=== PATIENT | female | born 1960 | race Caucasian/White ===

== ENCOUNTER 2020-08-25 19:09 | Emergency (ER) | payer MEDICAID, SELFPAY ==
[2020-08-25 19:52] VITALS: BP 151/68; PULSE 70; RESP 16; TEMP 36.7; O2SAT 99
[2020-08-25 21:12] VITALS: BP 182/87; PULSE 69; RESP 16; TEMP 36.9; O2SAT 94; BMI 33.4
--- NOTE | 2020-08-25 22:17 | CT_ITS ---
EXAMINATION: CT FACIAL BONES WITHOUT CONTRAST CLINICAL INFORMATION: Right upper premolar dental abscess? COMPARISON: None TECHNIQUE: Axial images obtained through the facial bone. Coronal and sagittal reformatted images are performed at the CT scanner This CT examination was performed using dose optimization techniques as appropriate, variously including the following: *Automated exposure control *Adjustment of mA and/or kV according to patient size (this includes techniques or standardized protocols for targeted exams where dose is matched to indication/reason for exam; i.e. extremities or head) *Use of iterative reconstruction technique DLP: 439 mGy-cm FINDINGS: There is no fracture. The orbital globes and retrobulbar structures are normal. Normal aeration of the paranasal sinuses. There is poor dentition. There is periapical lucency of the maxillary incisors bilaterally.. No evidence of periosteal abscess. CT/CT facial bones wo con IMPRESSION: Periapical lucency of the maxillary incisors bilaterally concerning for abscess.
--- NOTE | 2020-08-25 22:19 | ED.GENADULT ---
HPI - General Adult General Chief complaint: General Medical Stated complaint: face swelling Time Seen by Provider: 08/25/20 22:17 Source: patient Mode of arrival: ambulatory Limitations: no limitations History of Present Illness HPI narrative: Patient with caries in right upper pre molar area for last few days started on antibiotic penicillin for last 3 days today just few hours ago noticed increased swelling of the right cheek no fever no chills no nausea no vomiting Related Data Previous Rx's Medication Instructions Recorded clindamycin HCl 300 mg PO QID #40 cap 08/25/20 oxycodone-acetaminophen [Percocet] 1 tab PO Q6H PRN #20 tab 08/25/20 Allergies Allergy/AdvReac Type Severity Reaction Status Date / Time No Known Allergies Allergy Verified 08/25/20 21:11 Review of Systems Review of Systems: Yes all other systems are reviewed and are negative PMFSH Past Medical History Medical History Asthma Social History Social History Advance Directives: No Advance Directives Information Provided: Yes Physical Exam Vital Signs: Vital Signs: Last Vital Signs Temp 98.5 F 08/25/20 21:12 Pulse 82 08/25/20 23:05 Resp 16 08/25/20 23:05 BP 151/76 H 08/25/20 23:05 Pulse Ox 94 08/25/20 21:12 Body Mass Index 33.4 Const: General: healthy appearing and acute distress moderate HENMT: Head: Yes normal to inspection Ears: hearing grossly normal bilaterally General nose exam: Normal external nose present Face and sinus: Yes erythema (Right maxillary area) Face images: 1. Swelling of the right cheek over the maxillary area Mouth: Normal oral and palatal mucosa present Teeth and gingiva: caries Teeth image: 1. Deep dental caries with slight gum swelling tender Throat: Yes posterior oropharynx normal Resp: Effort & Inspection: normal respiratory effort Auscultation: clear to auscultation bilaterally Cardio: Rate: regular rate Rhythm: regular rhythm Heart sounds: S1 normal heart sound present and S2 normal heart sound present Course Course Course Narrative: Patient CT scan showed periapical dental abscess will give her p.o. clindamycin and oxycodone for pain advised to follow with dentist Discharge Plan Discharge Clinical Impression: Dental abscess Patient Disposition: Home, Self-Care Instructions: Dental Abscess (ED) Additional Instructions: Take antibiotic as prescribed. Stop the other antibiotic for now Follow-up with dentist Prescriptions: New clindamycin HCl 300 mg capsule 300 mg PO QID Qty: 40 RF: 0 oxycodone-acetaminophen [Percocet] 5-325 mg tablet 1 tab PO Q6H PRN (Reason: Pain (Scale Score 4-6)) Qty: 20 RF: 0
--- NOTE | 2020-08-25 22:20 | PC.NURSE ---
Pt found sitting upright in bed, CAOx4, speaking full sentences. Pt holding the right side of her face, reports pain/swelling x 3 days due to dental abscess. Pt has been taking PCN for 3 days with no relief. at bedside for primary eval. Pt aware of plan to CT sinuses. Awaiting CT.
[2020-08-25] MEDS: oxyCODONE HCl Immed Release 5 MG TABLET PO (22:31)
[2020-08-25] MEDS: Fluconazole 150 MG TABLET PO (22:31)
[2020-08-25] MEDS: Ketorolac Tromethamine 60 MG/2 ML VIAL IM (22:31)
--- NOTE | 2020-08-25 22:35 | PC.NURSE ---
Pt medicated per OCT for 10/10 pain to mouth/face. Awaiting CT.
[2020-08-25 23:05] VITALS: BP 151/76; PULSE 82; RESP 16
== END 2020-08-25 23:50 | disposition home or self-care (01) ==
PROVIDERS: Emergency Provider Internal Medicine; PCP Internal Medicine Geriatric Medicine
DX: K05.319 Chronic periodontitis, localized, unspecified severity (principal); Z79.899 Other long term (current) drug therapy
CPT/HCPCS: 70486; 96372; 99284; J1885

== ENCOUNTER 2020-10-16 14:01 | Emergency (ER) | payer MEDICAID, SELFPAY ==
--- NOTE | ~2020-10-16 | CT_ITS ---
EXAMINATION: CT ABDOMEN AND PELVIS WITH CONTRAST CLINICAL INFORMATION: Abdominal pain, diarrhea. Rule out diverticulitis COMPARISON: None TECHNIQUE: Multidetector volumetric images were obtained from the superior aspect of the liver through the pubic symphysis following administration 85 mL of Omnipaque 350 intravenous contrast. Sagittal and coronal reformatted images were obtained on the technologist's workstation. Oral contrast: No This CT examination was performed using dose optimization techniques as appropriate, variously including the following: *Automated exposure control *Adjustment of mA and/or kV according to patient size (this includes techniques or standardized protocols for targeted exams where dose is matched to indication/reason for exam; i.e. extremities or head) *Use of iterative reconstruction technique DLP: 638 mGy-cm FINDINGS: LUNG BASES: In addition to calcified granulomata, there are small noncalcified pulmonary nodules, for example 5 mm in the left lower lobe in image 12, 3 mm in the left lower lobe in image 11, and 3 mm in the left lower lobe in image 9. There is focal bronchiectasis and bronchial wall thickening in the posterior periphery of the left lower lobe in the left posterior costophrenic sulcus. LIVER, GALLBLADDER, AND BILIARY TREE: The liver is normal in size, shape, and attenuation. No focal hepatic lesion or biliary ductal dilatation is present. The gallbladder is unremarkable with no evidence of radiopaque gallstones, gallbladder wall thickening, or obvious pericholecystic inflammatory changes. PANCREAS: Unremarkable. SPLEEN: Unremarkable. ADRENAL GLANDS: Unremarkable. KIDNEYS AND URETERS: The kidneys are normal in size, shape, and attenuation. No hydronephrosis, hydroureter, or calculi seen. No perinephric stranding. BLADDER: Unremarkable. GASTROINTESTINAL TRACT: Stomach is collapsed with wall thickening likely due to underdistention. Small bowel nondilated. There is wall thickening and edema of the right colon to the hepatic flexure. There is a more normal appearance of the splenic flexure and left colon. Small amount of fluid is seen in the right lower quadrant adjacent the cecum, most notable on coronal images. Several small right lower quadrant lymph nodes are present as well. Scattered colonic diverticulosis most notable in the sigmoid colon. No evidence of acute colitis. ABDOMINAL WALL: Small fat-containing umbilical hernia. LYMPH NODES: Normal. VASCULAR: Unremarkable. PELVIC VISCERA: Normal CT appearance of the uterus and ovaries. No adnexal mass. OSSEOUS STRUCTURES: Unremarkable. CT/CT abdomen pelvis w con IMPRESSION: There is mild wall thickening and edema of the right colon, consistent with a nonspecific colitis. Diverticulosis without evidence of diverticulitis. Several tiny pulmonary micronodules are seen in the left lower lobe. According to the UPDATED 2017 Fleischner Society recommendations, the advised follow-up imaging for solid nodules < 6 mm is: LOW RISK PATIENT: No routine follow-up. HIGH RISK PATIENT: Optional CT at 12 months.
[2020-10-16 14:31] VITALS: BP 111/50; PULSE 78; RESP 18; TEMP 36.9; O2SAT 97; BMI 33.3
[2020-10-16 15:41] VITALS: BP 132/58; PULSE 77; RESP 19; TEMP 37.2; O2SAT 97
--- NOTE | 2020-10-16 15:43 | PC.NURSE ---
Pt reports that she has been having black diarrhea with abdominal pain for about 2 weeks. She has been having nausea as well. Her pain is in her lower middle abdomen.
[2020-10-16 16:08] LABS: MANUAL DIFF FLAG NO
[2020-10-16 16:10] LABS: Basophils Percent Auto 0.5 % (0-2); Eosinophils Absolute Auto 0.1 X10*3/uL (0.0-0.4); Eosinophils Percent Auto 1.1 % (0-4); Hematocrit 40.9 % (37-47); Hemoglobin 13.1 g/dl (12.0-16.0); Imm Gran Abs Auto 0.04 X10*3/uL (0.00-0.03); Imm Gran Pct Auto 0.5 % (0.0-0.4); Lymphocytes Absolute Auto 1.2 X10*3/uL (1.2-4.9); Mean Corpuscular Hemoglobin 27.5 pg (27.0-33.0); Mean Corpuscular Volume 85.9 fL (80-98); Mean Platelet Volume 8.9 fL (9.4-12.3); Monocytes Absolute Auto 0.5 X10*3/uL (0.1-1.2); Monocytes Percent Auto 6.8 % (2-11); Neutrophils Absolute Auto 5.4 X10*3/uL (2.0-8.3); Neutrophils Percent Auto 74.1 % (45-73); Platelet Count 282 X10*3/uL (160-400); Red Blood Count 4.76 X10*6/uL (4.20-5.50); Red Cell Distribution Width 12.9 % (11.0-16.0); White Blood Count 7.3 X10*3/uL (4.8-10.8)
--- NOTE | 2020-10-16 16:18 | ED_ITS ---
HPI - Abdominal Pain General Chief Complaint: Abdominal Pain Stated Complaint: blood in stool Time Seen by Provider: 10/16/20 15:43 Source: patient and lang interpreter Mode of arrival: ambulatory Limitations: no limitations and language barrier History of Present Illness HPI narrative: 60-year-old female with a past medical history of chronic back pain, chronic neck pain, anxiety, panic attacks with complaints of generalized abdominal cramping with associated diarrhea x2 weeks. Patient tells me that her stools have been dark in color and frequent with more episodes and she can count 1 day. Nausea with no vomiting. No fevers or chills. She describes her pain as generalized abdominal cramping which is relieved by moving her bowels. She does take naproxen occasionally. Does not take any iron supplements. Took clindamycin x 10 days one month ago for dental abscess. MD elicited complaint: abdominal pain Related Data Previous Rx's Medication Instructions Recorded clindamycin HCl 300 mg PO QID #40 cap 08/25/20 oxycodone-acetaminophen [Percocet] 1 tab PO Q6H PRN #20 tab 08/25/20 vancomycin 125 mg PO QID 10 Days #40 cap 10/16/20 Allergies Allergy/AdvReac Type Severity Reaction Status Date / Time No Known Allergies Allergy Verified 10/16/20 14:31 Review of Systems Review of Systems Yes all other systems are reviewed and are negative Constitutional: Reports no additional constitutional complaints, Denies body ache(s), Denies chills, Denies fever(s), Denies headache(s) and Denies weakness Eyes: Reports no additional eye complaints and Denies change in vision Reports system reviewed and no additional complaints, except as documented, Denies dizziness, Denies headache(s), Denies nasal congestion, Denies nasal discharge and Denies neck pain Cardiovascular: Reports no additional cardiovascular complaints, Denies chest pain, Denies leg edema and Denies dyspnea Respiratory: Reports no additional respiratory complaints, Denies cough and Denies dyspnea Gastrointestinal: Reports no additional gastrointestinal complaints, Reports abdominal pain, Reports melena, Reports diarrhea, Reports nausea and Denies vomiting Genitourinary: Reports no additional female genitourinary complaints and Denies urinary incontinence Musculoskeletal: Reports no additional musculoskeletal complaints, Denies back pain, Denies arthralgias, Denies joint swelling, Denies neck pain, Denies numbness and Denies tingling Skin/Breast: Reports system reviewed and no additional complaints, except as docu and Denies rash Reports system reviewed and no additional complaints, except as documented, Denies Abnormal speech present, Denies dizziness, Denies headache(s), Denies numbness, Denies tingling and Denies weakness Physical Exam Vital Signs: Vital Signs: Last Vital Signs Temp 99.0 F 10/16/20 15:41 Pulse 77 10/16/20 15:41 Resp 19 10/16/20 15:41 BP 132/58 L 10/16/20 15:41 Pulse Ox 97 10/16/20 15:41 Body Mass Index 33.3 Const: Other: Very anxious, tearful, crying General: cooperative, healthy appearing, comfortable and no acute distress Orientation/consciousness: patient oriented x3 Limitations: no limitations HENMT: Head: Yes normal to inspection Ears: hearing grossly normal bilaterally General nose exam: Normal external nose present Face and sinus: Yes normal facial exam Mouth: Normal oral and palatal mucosa present Throat: Yes posterior oropharynx normal Eyes: General: appearance normal, both eyes and all related structures Pupils: Equal, round and reactive pupils present Neck: Neck: Yes normal visual inspection Chest: Chest palpation & inspection: normal inspection of the chest Resp: Effort & Inspection: normal respiratory effort Auscultation: clear to auscultation bilaterally Cardio: Rate: regular rate Rhythm: regular rhythm Peripheral pulses: Peripheral pulses 2+ throughout GI: Inspection: Yes normal to inspection Palpation (GI): Soft to palpation, Tenderness to palpation present (GI) (Generalized diffuse tenderness with no focal tenderness) with no rebound tenderness and no guarding Auscultation: normal bowel sounds Rectal Exam - Female: visual inspection normal and normal sphincter tone Back/Spine/Pelvis: Thoracic/Lumbar Spine: thoracic and lumbar spine normal to inspection Skin: General skin exam: no rashes or lesions noted Neuro: General: patient oriented x3, no focal motor deficits and normal sensation to monofilament Cranial nerves: Yes Equal, round and reactive pupils present Cognition (Neuro): normal cognition Speech: No Abnormal speech present Gait exam (Neuro): Normal gait present Motor exam (neuro): 5/5 motor strength present throughout Extrem: General: Yes normal to inspection Course Course Course Narrative: 60 yo female here with diffuse abdominal cramping with associated nausea and diarrhea x 2 weeks. Patient describes her stool as dark in color. On exam she has mild diffuse tenderness with no focal tenderness. Her rectal exam was limited as the patient was very anxious and no stool was able to be obtained. Will check labs including acid, occult stool, UA, stool studies (D/t recent antibiotics), CT A/P. Will give PPI, antiemetics, analgesia and re-assess. 1620-Visualized stool sample which was yellow liquid stool which was blood streaked NOT black. 1720-Labs unremarkable. UA pending. C diff antigen positive but toxin negative. PCR pending. CT c/w nonspecific colitis. D/w with ID to treat for cdiff or wait for PCR to be resulted. 1800-D/w with ID. In this case where the antigen is positive and the toxin is negative should follow the PCR which will be resulted tomorrow. If patient is symptomatic with severe diarrhea, abdominal cramping and recent antibiotic use may start treatment with oral vancomycin today. Discussed findings with the patient. Reviewed worrisome signs/symptoms with the patient and when to return to the ED. Comfortable with discharge home. MDM - Abdominal Pain MDM Narrative Medical decision making narrative: infectious diarrhea, diverticulitis, PUD, GI bleed, IBS Medical Records Attestation: I reviewed the patient's medical records. Lab Data Attestation: I reviewed the patient's lab results. Result diagrams: 10/16/20 15:59 10/16/20 15:59 Labs: Lab Results 10/16/20 10/16/20 10/16/20 Range/Units 15:59 15:59 15:59 WBC 7.3 (4.8-10.8) X10*3/uL RBC 4.76 (4.20-5.50) X10*6/uL Hgb 13.1 (12.0-16.0) g/dl Hct 40.9 (37-47) % MCV 85.9 (80-98) fL MCH 27.5 (27.0-33.0) pg MCHC 32.0 (31.0-35.0) g/dl RDW 12.9 (11.0-16.0) % Plt Count 282 (160-400) X10*3/uL MPV 8.9 L (9.4-12.3) fL Immature Gran % (Auto) 0.5 H (0.0-0.4) % Neut % (Auto) 74.1 H (45-73) % Lymph % (Auto) 17.0 L (20-40) % [place] % (Auto) 6.8 (2-11) % Eos % (Auto) 1.1 (0-4) % Baso % (Auto) 0.5 (0-2) % Lymph # (Auto) 1.2 (1.2-4.9) X10*3/uL [place] # (Auto) 0.5 (0.1-1.2) X10*3/uL Eos # (Auto) 0.1 (0.0-0.4) X10*3/uL Baso # (Auto) 0.0 (0.0-0.2) X10*3/uL Abs Immat Gran (auto) 0.04 H (0.00-0.03) X10*3/uL Absolute Neuts (auto) 5.4 (2.0-8.3) X10*3/uL Absolute Nucleated RBC 0.000 (0.0-0.012) X10*3/uL Nucleated RBC % (auto) 0.0 (0.0-0.2) /100WBC PT 13.0 (10.8-13.0) SEC INR 1.1 (0.9-1.1) Sodium 141 (135-145) mmol/L Potassium 3.4 (3.3-5.1) mmol/L Chloride 103 (96-108) mmol/L Carbon Dioxide 28 (22-29) mmol/L Anion Gap 13 (12-20) BUN 14 (9-16) mg/dL Creatinine 0.84 (0.5-1.4) mg/dL Estim Creat Clear Calc 64.3 Estimated GFR > 60 Random Glucose 108 (60-115) mg/dL Lactic Acid (0.5-2.0) mmol/L Calcium 8.5 (8.4-10.2) mg/dL Total Bilirubin 0.5 (0.0-1.0) mg/dL Direct Bilirubin < 0.2 (0.0-0.5) mg/dL AST 14 (5-31) U/L ALT 12 (0-31) U/L Alkaline Phosphatase 87 (39-117) U/L Total Protein 6.7 (6.5-8.0) g/dL Albumin 3.9 (3.5-5.0) g/dL Stool Occult Blood (NEG) Stool Leukocytes, Qual (NEGATIVE) C. difficile Toxin A&B (Negative) C. difficile Antigen (Negative) C. difficile Interpret 10/16/20 10/16/20 10/16/20 Range/Units 15:59 16:19 16:19 WBC (4.8-10.8) X10*3/uL RBC (4.20-5.50) X10*6/uL Hgb (12.0-16.0) g/dl Hct (37-47) % MCV (80-98) fL MCH (27.0-33.0) pg MCHC (31.0-35.0) g/dl RDW (11.0-16.0) % Plt Count (160-400) X10*3/uL MPV (9.4-12.3) fL Immature Gran % (Auto) (0.0-0.4) % Neut % (Auto) (45-73) % Lymph % (Auto) (20-40) % [place] % (Auto) (2-11) % Eos % (Auto) (0-4) % Baso % (Auto) (0-2) % Lymph # (Auto) (1.2-4.9) X10*3/uL [place] # (Auto) (0.1-1.2) X10*3/uL Eos # (Auto) (0.0-0.4) X10*3/uL Baso # (Auto) (0.0-0.2) X10*3/uL Abs Immat Gran (auto) (0.00-0.03) X10*3/uL Absolute Neuts (auto) (2.0-8.3) X10*3/uL Absolute Nucleated RBC (0.0-0.012) X10*3/uL Nucleated RBC % (auto) (0.0-0.2) /100WBC PT (10.8-13.0) SEC INR (0.9-1.1) Sodium (135-145) mmol/L Potassium (3.3-5.1) mmol/L Chloride (96-108) mmol/L Carbon Dioxide (22-29) mmol/L Anion Gap (12-20) BUN (9-16) mg/dL Creatinine (0.5-1.4) mg/dL Estim Creat Clear Calc Estimated GFR Random Glucose (60-115) mg/dL Lactic Acid 0.9 (0.5-2.0) mmol/L Calcium (8.4-10.2) mg/dL Total Bilirubin (0.0-1.0) mg/dL Direct Bilirubin (0.0-0.5) mg/dL AST (5-31) U/L ALT (0-31) U/L Alkaline Phosphatase (39-117) U/L Total Protein (6.5-8.0) g/dL Albumin (3.5-5.0) g/dL Stool Occult Blood POS (NEG) Stool Leukocytes, Qual MANY: >10/OIF (NEGATIVE) C. difficile Toxin A&B (Negative) C. difficile Antigen (Negative) C. difficile Interpret 10/16/20 Range/Units 16:19 WBC (4.8-10.8) X10*3/uL RBC (4.20-5.50) X10*6/uL Hgb (12.0-16.0) g/dl Hct (37-47) % MCV (80-98) fL MCH (27.0-33.0) pg MCHC (31.0-35.0) g/dl RDW (11.0-16.0) % Plt Count (160-400) X10*3/uL MPV (9.4-12.3) fL Immature Gran % (Auto) (0.0-0.4) % Neut % (Auto) (45-73) % Lymph % (Auto) (20-40) % [place] % (Auto) (2-11) % Eos % (Auto) (0-4) % Baso % (Auto) (0-2) % Lymph # (Auto) (1.2-4.9) X10*3/uL [place] # (Auto) (0.1-1.2) X10*3/uL Eos # (Auto) (0.0-0.4) X10*3/uL Baso # (Auto) (0.0-0.2) X10*3/uL Abs Immat Gran (auto) (0.00-0.03) X10*3/uL Absolute Neuts (auto) (2.0-8.3) X10*3/uL Absolute Nucleated RBC (0.0-0.012) X10*3/uL Nucleated RBC % (auto) (0.0-0.2) /100WBC PT (10.8-13.0) SEC INR (0.9-1.1) Sodium (135-145) mmol/L Potassium (3.3-5.1) mmol/L Chloride (96-108) mmol/L Carbon Dioxide (22-29) mmol/L Anion Gap (12-20) BUN (9-16) mg/dL Creatinine (0.5-1.4) mg/dL Estim Creat Clear Calc Estimated GFR Random Glucose (60-115) mg/dL Lactic Acid (0.5-2.0) mmol/L Calcium (8.4-10.2) mg/dL Total Bilirubin (0.0-1.0) mg/dL Direct Bilirubin (0.0-0.5) mg/dL AST (5-31) U/L ALT (0-31) U/L Alkaline Phosphatase (39-117) U/L Total Protein (6.5-8.0) g/dL Albumin (3.5-5.0) g/dL Stool Occult Blood (NEG) Stool Leukocytes, Qual (NEGATIVE) C. difficile Toxin A&B Negative (Negative) C. difficile Antigen Positive A (Negative) C. difficile Interpret PCR to be performed Imaging Data CT scan - abdomen: Attestation: I personally reviewed and interpreted this imaging study as follows: Radiologist's impression: EXAMINATION: CT ABDOMEN AND PELVIS WITH CONTRAST CLINICAL INFORMATION: Abdominal pain, diarrhea. Rule out diverticulitis COMPARISON: None TECHNIQUE: Multidetector volumetric images were obtained from the superior aspect of the liver through the pubic symphysis following administration 85 mL of Omnipaque 350 intravenous contrast. Sagittal and coronal reformatted images were obtained on the technologist's workstation. Oral contrast: No This CT examination was performed using dose optimization techniques as appropriate, variously including the following: *Automated exposure control *Adjustment of mA and/or kV according to patient size (this includes techniques or standardized protocols for targeted exams where dose is matched to indication/reason for exam; i.e. extremities or head) *Use of iterative reconstruction technique DLP: 638 mGy-cm FINDINGS: LUNG BASES: In addition to calcified granulomata, there are small noncalcified pulmonary nodules, for example 5 mm in the left lower lobe in image 12, 3 mm in the left lower lobe in image 11, and 3 mm in the left lower lobe in image 9. There is focal bronchiectasis and bronchial wall thickening in the posterior periphery of the left lower lobe in the left posterior costophrenic sulcus. LIVER, GALLBLADDER, AND BILIARY TREE: The liver is normal in size, shape, and attenuation. No focal hepatic lesion or biliary ductal dilatation is present. The gallbladder is unremarkable with no evidence of radiopaque gallstones, gallbladder wall thickening, or obvious pericholecystic inflammatory changes. PANCREAS: Unremarkable. SPLEEN: Unremarkable. ADRENAL GLANDS: Unremarkable. KIDNEYS AND URETERS: The kidneys are normal in size, shape, and attenuation. No hydronephrosis, hydroureter, or calculi seen. No perinephric stranding. BLADDER: Unremarkable. GASTROINTESTINAL TRACT: Stomach is collapsed with wall thickening likely due to underdistention. Small bowel nondilated. There is wall thickening and edema of the right colon to the hepatic flexure. There is a more normal appearance of the splenic flexure and left colon. Small amount of fluid is seen in the right lower quadrant adjacent the cecum, most notable on coronal images. Several small right lower quadrant lymph nodes are present as well. Scattered colonic diverticulosis most notable in the sigmoid colon. No evidence of acute colitis. ABDOMINAL WALL: Small fat-containing umbilical hernia. LYMPH NODES: Normal. VASCULAR: Unremarkable. PELVIC VISCERA: Normal CT appearance of the uterus and ovaries. No adnexal mass. OSSEOUS STRUCTURES: Unremarkable. CT/CT abdomen pelvis w con IMPRESSION: There is mild wall thickening and edema of the right colon, consistent with a nonspecific colitis. Diverticulosis without evidence of diverticulitis. Discharge Plan Discharge Clinical Impression: C. difficile colitis Patient Disposition: Home, Self-Care Instructions: C. Diff (Clostridioides Difficile) Infection (ED) Additional Instructions: Increase fluids, rest Avoid antidiarrhea medications as this could make you very sick Your first stool sample is concerning for cdiff. Your second test will be back tomorrow and we will call you if the treatment plan changes Wash your hands after using the bathroom. Clean all toilets and bathrooms with a bleach solution Prescriptions: New vancomycin 125 mg capsule 125 mg PO QID 10 Days Qty: 40 RF: 0 No Action clindamycin HCl 300 mg capsule 300 mg PO QID Qty: 40 RF: 0 oxycodone-acetaminophen [Percocet] 5-325 mg tablet 1 tab PO Q6H PRN (Reason: Pain (Scale Score 4-6)) Qty: 20 RF: 0 Referrals: Name,MD Yeison [Primary Care Provider] - 2 days Print Language: [place] [facility] Past Medical History Attestation statement: The following information was validated with the patient. Source: old records reviewed and nursing notes reviewed Medical History Asthma Back pain Social History Social History Alcohol intake: never Smoking Status: Never smoker Use of substances other than those prescribed or required for medical reasons: No Advance Directives: No Advance Directives Information Provided: No
[2020-10-16 16:21] LABS: INTERNATIONAL NORM RATIO 1.1 (0.9-1.1)
[2020-10-16 16:27] LABS: OBS Int Ctl Valid YES; OBS1 POS (NEG)
[2020-10-16 16:27] LABS: Lactic Acid 0.9 mmol/L (0.5-2.0)
[2020-10-16 16:33] LABS: Alanine Aminotransferase 12 U/L (0-31); Albumin Level 3.9 g/dL (3.5-5.0); Alkaline Phosphatase 87 U/L (39-117); Anion Gap 13 (12-20); Aspartate Amino Transferase 14 U/L (5-31); Bilirubin Direct < 0.2 mg/dL (0.0-0.5); Bilirubin Total 0.5 mg/dL (0.0-1.0); Blood Urea Nitrogen 14 mg/dL (9-16); Calcium 8.5 mg/dL (8.4-10.2); Carbon Dioxide 28 mmol/L (22-29); Chloride 103 mmol/L (96-108); Creatinine Clr Calc Pharmacy 64.3; Estimated Glomerular Filt Rate > 60; Glucose Random 108 mg/dL (60-115); Potassium 3.4 mmol/L (3.3-5.1); Sodium 141 mmol/L (135-145); Total Protein 6.7 g/dL (6.5-8.0)
--- NOTE | 2020-10-16 16:36 | PC.NURSE ---
Stool sample sent for occult and culturing.
[2020-10-16] MEDS: 0.9 % Sodium Chloride 1,000 ML 999 ML IV (16:52)
[2020-10-16] MEDS: Famotidine/PF 20 MG/2 ML VIAL IVPUSH (16:53)
[2020-10-16] MEDS: LORazepam 2 MG/ML VIAL 1 MG IVPUSH (16:53)
[2020-10-16] MEDS: Morphine Sulfate 2 MG/ML CARTRIDGE IVPUSH (16:54)
[2020-10-16 17:17] LABS: CDIFF Ag Positive (Negative); CDiff Toxin Negative (Negative)
[2020-10-16 17:18] LABS: CDIFF Internal ctrl Dots and bkg OK (V)
[2020-10-16] MEDS: iohexoL 350 MG/ML 100 ML INFUS..BTL IV (17:20)
[2020-10-16 17:32] LABS: Leukocytes Stool Qualitative MANY: >10/OIF (NEGATIVE)
[2020-10-17 09:43] LABS: CDiff Gene PCR POSITIVE (Negative)
== END 2020-10-16 18:14 | disposition home or self-care (01) ==
PROVIDERS: Nurse Practitioner Family; Emergency Provider Emergency Medicine Emergency Medical Services; PCP Internal Medicine Geriatric Medicine
DX: A04.72 Enterocolitis due to Clostridium difficile, not specified as recurrent (principal); R10.84 Generalized abdominal pain; R11.0 Nausea; F41.9 Anxiety disorder, unspecified
CPT/HCPCS: 36415; 74177; 80048; 80076; 82272; 83605; 85025; 85610; 87045; 87046; 87177; 87209; 87324; 87449; 87493; 89055; 96361; 96374; 96375; 99284; J2060; J2270; Q9967

== ENCOUNTER 2021-01-11 16:21 | Outpatient (REF) | payer MEDICAID, SELFPAY ==
--- NOTE | 2021-01-11 | PFT_ITS ---
INDICATION: Asthma. SPIROMETRY: The FEV1 to FVC of 90% with an FEV1 of 2.13 L, which is 105% predicted, and an FVC of 2.37 L, which is 91% predicted. No significant response to bronchodilators noted. Maximum voluntary ventilation 96% predicted. LUNG VOLUMES: Total lung capacity 87% predicted with an expiratory reserve volume of 22% predicted. DIFFUSION CAPACITY: DLCO 121% predicted. COMPARISONS: None. INTERPRETATION: No obstructive ventilatory defect. No significant response to bronchodilators noted. Normal maximum voluntary ventilation. Normal lung volumes, although she has a decrease in the expiratory reserve volume likely from an elevated BMI. Her diffusion capacity is high normal, therefore need to consider exogenous exposure to carbon monoxide from smoking or secondhand smoke. If asthma is in the differential, methacholine challenge may be very helpful in assessing for hyper-reactive airways in a diagnosis of asthma. Clinical correlation warranted. Geremias Rich MD MR/MODL / [id number]
== END 2021-01-11 16:22 | disposition home or self-care (01) ==
LOC: HO.RESP 16:21
PROVIDERS: PCP Internal Medicine Geriatric Medicine; Visit Provider Internal Medicine Geriatric Medicine
DX: J45.909 Unspecified asthma, uncomplicated (principal)
CPT/HCPCS: 94060; 94727; 94729

== ENCOUNTER 2022-07-11 13:47 | Outpatient (REF) | payer MEDICAID, SELFPAY ==
--- NOTE | ~2022-07-11 | MM_ITS ---
EXAMINATION: MM SCREENING DIGITAL BREAST TOMOSYNTHESIS, BILATERAL CLINICAL INFORMATION: Screening. Asymptomatic. The lifetime risk of breast cancer based on the Tyrer-Cuzick Model is 4%. COMPARISON: Mammography: 05/06/2019, 08/10/2017 TECHNIQUE: Digital breast tomosynthesis is performed in both the craniocaudal and mediolateral oblique views along with computer-aided detection (CAD). Synthesized 2D images are generated from the tomosynthesis. FINDINGS: There are scattered areas of fibroglandular density (ACR BI-RADS breast composition Category b). There are no significant masses, abnormal calcifications, or other abnormalities. Parenchymal pattern is similar to prior exams. No developing density. No significant changes. The axilla and skin contours are unremarkable. MM/MM tomosynthesis screening BI IMPRESSION: No mammographic evidence of malignancy. ASSESSMENT: BI-RADS 1: Negative RECOMMENDATION: Routine annual mammography screening. This patient's information was entered into a reminder system with a target due date for their next mammogram.
== END 2022-07-11 13:48 | disposition home or self-care (01) ==
LOC: HO.MAMMO 13:47
PROVIDERS: PCP Internal Medicine Geriatric Medicine; Visit Provider Internal Medicine Geriatric Medicine
DX: Z12.31 Encounter for screening mammogram for malignant neoplasm of breast (principal)
CPT/HCPCS: 77063; 77067

== ENCOUNTER 2023-09-14 13:42 | Outpatient (REF) | payer MEDICAID, SELFPAY ==
[2023-09-14 16:19] LABS: MANUAL DIFF FLAG NO
[2023-09-14 16:24] LABS: Basophils Absolute Auto 0.1 X10*3/uL (0.0-0.2); Basophils Percent Auto 1.1 % (0-2); Eosinophils Absolute Auto 0.4 X10*3/uL (0.0-0.4); Eosinophils Percent Auto 5.1 % (0-4); Hematocrit 43.1 % (37.0-47.0); Hemoglobin 13.8 g/dl (12.0-16.0); Imm Gran Abs Auto 0.02 X10*3/uL (0.00-0.03); Imm Gran Pct Auto 0.3 % (0.0-0.4); Lymphocytes Absolute Auto 2.7 X10*3/uL (1.2-4.9); Lymphocytes Percent Auto 37.1 % (20-40); Mean Corpuscular Volume 87.4 fL (80.0-98.0); Monocytes Absolute Auto 0.3 X10*3/uL (0.1-1.2); Neutrophils Absolute Auto 3.8 x10*3/uL (2.0-8.3); Neutrophils Percent Auto 52.4 % (45-73); Platelet Count 298 X10*3/uL (160-400); Red Blood Count 4.93 X10*6/uL (4.20-5.50); Red Cell Distribution Width 13.3 % (11.0-16.0); White Blood Count 7.2 X10*3/uL (4.8-10.8)
[2023-09-14 16:44] LABS: Alanine Aminotransferase 18 U/L (0-31); Albumin Level 3.9 g/dL (3.5-5.0); Alkaline Phosphatase 113 U/L (39-117); Anion Gap 13 (12-20); Aspartate Amino Transferase 17 U/L (5-31); Bilirubin Total 0.5 mg/dL (0.0-1.0); Blood Urea Nitrogen 14 mg/dL (9-16); Calcium 9.9 mg/dL (8.4-10.2); Carbon Dioxide 29 mmol/L (22-29); Chloride 102 mmol/L (96-108); Cholesterol 262 mg/dL (<200); Estimated Glomerular Filt Rate > 60; Glucose Random 91 mg/dL (60-115); HDL Cholesterol 35 mg/dL (>40); Potassium 3.7 mmol/L (3.3-5.1); Sodium 140 mmol/L (135-145); Total Protein 7.2 g/dL (6.5-8.0); Triglycerides 442 mg/dL (<150)
[2023-09-14 17:03] LABS: TSH reflex Free T4 5.75 uIU/mL (0.32-4.0)
[2023-09-14 17:35] LABS: Free T4 (Free Thyroxine) 0.83 ng/dL (0.71-1.85)
== END 2023-09-14 13:43 | disposition home or self-care (01) ==
LOC: HO.HHCL 13:42
PROVIDERS: Visit Provider Internal Medicine Geriatric Medicine
DX: E03.8 Other specified hypothyroidism (principal); Z12.11 Encounter for screening for malignant neoplasm of colon; Z79.899 Other long term (current) drug therapy
CPT/HCPCS: 36415; 80053; 80061; 84439; 84443; 85025

== ENCOUNTER 2023-10-22 11:38 | Outpatient (REF) | payer MEDICAID, SELFPAY | END 2023-10-22 11:39 | disposition home or self-care (01) | LOC: HO.HOSX 11:38 | PROVIDERS: Visit Provider Physician Assistant | DX: Z13.89 Encounter for screening for other disorder (principal) ==

== ENCOUNTER 2023-10-25 13:55 | Outpatient (AMB) | payer MEDICAID, SELFPAY ==
--- NOTE | 2023-10-25 14:27 | A.OFFVIS_ITS ---
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 Patient reports her finger off and on locking when she makes a fist or when she is using for about 2 weeks. No previous treatment. 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 The patient reports to have intermittent locking in the right little finger when she makes a fist or when she is using it. She states this has been going on for the past two weeks. She has had no other treatments. [facility] Medical History Asthma Back pain Social History (Updated 10/25/23 @ 14:33 by Fadia Rich) Alcohol intake: never Patient Tobacco Use Status: Never used Tobacco Current occupational status: disabled Current occupation: right hand dominant Review of Systems Const All systems reviewed & are unremarkable except as noted in HPI and below Physical Exam Vital Signs: BMI result Body Mass Index 35.9 Const General: cooperative and no acute distress Orientation/consciousness: patient oriented x3 Resp Effort & Inspection: normal respiratory effort and able to speak in complete sentences Cardio Peripheral pulses: Peripheral pulses 2+ throughout Skin General skin exam: no rashes or lesions noted Neuro General: patient oriented x3 Extrem Other: Right little finger: Mild edema located over the PIP joint. No surrounding erythema or drainage. No signs of infection. Able to perform full flexion and extension at the CMC, PIP, and DIP joints with no pain or with axial loading. No active locking with ROM. No tenderness to palpation over the A1 yessica. Sensation intact. Capillary refill is brisk. The remainder of the hand exam, including the remaining digits, is within normal range. 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 Peña is a 63-year-old female, who is Bangladeshi speaking, presents in the office today, as a new patient, for an evaluation of right little finger trigger finger. The patient reports to have intermittent locking in the right little finger when she makes a fist or when she is using it. She states this has been going on for the past two weeks. She has had no other treatments. I recommend the use of anti-inflammatory or gentle ROM. If she should develop any of the following including but not limited too erythema, increased edema, drainage, warmth, or pain she should present to the emergency department for evaluation. Follow up will be PRN, or sooner if needed. X-rays of the right hand which were obtained while in the office today and were reviewed by me, Carol Toribio PA-C, revealed no acute fracture of dislocation. Orders: Orders XR hand RT min 3V Today M79.643 - Pain in unspecified hand Patient Instructions: Scribed by Sandra Peralta, medical service technician, for Carol Toribio PA-C on 10/25/2023 at 2:01 pm, EST. 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
[2023-10-25 14:29] VITALS: BMI 35.9
== END 2023-10-25 14:57 | disposition home or self-care (01) ==
PROVIDERS: PCP Internal Medicine Geriatric Medicine; Visit Provider Physician Assistant
DX: M15.2 Bouchard's nodes (with arthropathy) (principal)
CPT/HCPCS: 99203

== ENCOUNTER 2023-10-25 14:37 | Outpatient (REF) | payer MEDICAID, SELFPAY ==
--- NOTE | ~2023-10-25 | XR_ITS ---
EXAMINATION: XR HAND, RIGHT CLINICAL INFORMATION: Pain in unspecified hand COMPARISON: None available. TECHNIQUE: PA, lateral, and oblique views of the right hand with arrow pointing to the little finger FINDINGS: The bones are intact. No fracture. Alignment is anatomic. Small marginal osteophytes are seen along the ulnar aspect of the PIP joint of the little finger with mild joint space narrowing. Mild associated soft tissue fullness at this area. No erosions or soft tissue calcifications. XR/XR hand RT min 3V IMPRESSION: Mild degenerative change of the PIP joint of the little finger.
== END 2023-10-25 14:38 | disposition home or self-care (01) ==
LOC: HO.HOSX 14:37
PROVIDERS: Visit Provider Physician Assistant
DX: M15.2 Bouchard's nodes (with arthropathy) (principal); M65.351 Trigger finger, right little finger
CPT/HCPCS: 73130; 99212

== ENCOUNTER 2024-09-16 11:26 | Outpatient (REF) | payer MEDICAID, SELFPAY ==
--- OUTSIDE RECORDS SUMMARY | 2024-09-16 12:41 | XMS_ITS | Encounter Summary ---
Author Organization [employer] Address [address] [facility] [address] [place] [address] Care Team Providers Care Distribution Driver Name Role Phone Name, Yeison RUSSELL Primary Care Provider [phone] Lupe Pillai PharmD Unavailable [phone] Reason for Visit * Reason Comments Med Refill Encounter Details Date Type Department Care Team ([facility] st Contact Info) Description 09/03/2024 Refill [facility] [address] [place], [place] [phone] Name, MD Yeison [address] [place], [place] [phone] Moderate persistent asthma without complication Social History Tobacco Use Types Packs/Day Years Used Date Smoking Tobacco: Never Smokeless Tobacco: Never Alcohol Use Standard Drinks/Week Comments Never 0 (1 standard drink = 0.6 oz pur e alcohol) Depression Answer Date Recorded Patient Health Questionnaire-9 Score 0 07/28/2024 Patient Health Questionnaire-9 Score 0 07/28/2024 Last PHQ-9: Questionnaire Data Not on file 1 09/28/2023 Housing Stability Answer Date Recorded What is your housing situation today? I have mahi [place]in 07/28/[address] you li ve. Do you have problems with any of the following? None of the above 07/28/2024 Food Insecurity Answer Date Recorded Within the past 12 months, y ou worried that your food would run out before you got money to buy more: Never True 07/28/2024 Within the past 12 months,th e food you bought just didn't last and you didn't have enough money to get more: Never True 04/2024 Transportation Answer Date Recorded In the past 12 months, has l ack of transportation kept you from medical appts, meetings, work or from getting things needed for daily living? No 07/28/2024 Utilities Answer Date Recorded In the past 12 months, has t he electric, gas, oil or water company threatened to shut off services in your home? No 07/28/2024 Depression Answer Date Recorded Patient Health Questionnaire-2 Score 0 07/28/2024 Internet Access Answer Date Recorded Internet Access Q1 Yes 07/28/2024 Internet Access Q2 Not on file 07/28/2024 Comments Unknown Sex and Gender Information Value Date Recorded Sex Assigned at Female 06/19/2022 10:16 AM EDT Legal Sex Female 10:16 AM EDT Gender Identity Female 06/19/2022 10:16 AM EDT Sexual Orientation Straight 06/19/2022 10 :16 AM EDT documented as of this encounter Plan of Treatment Upcoming Encounters Date Type Department Care Team (Late st Contact Info) Description 09/23/2024 3:30 PM EST Medication Management [facility] [address] [place] [phone] Lupe Pillai, PharmD [address] [place] [phone] 11/10/2024 3:30 PM EDT Office Visit [facility] [address] [place] [address] [phone] Yeison Kraus MD [address] [place] [phone] documented as of this encounter Goals Goal Patient Goal Type Associated Problems Recent Progress Patient-Stated? Author Record your blood pressure once per day Blood Pressure No Puia, Lupe, PharmD Blood Pressure < 140/90 Blood Pressure 154/81( 025 5:23 PM EST) No Puia Lupe, PharmD documented as of this encounter Visit Diagnoses Diagnosis Moderate persistent asthma without complication documented in this encounter Additional Health Concerns Assessment Noted Time PHQ-9 Depression Total Score: 0 07/28/20 24 4:24 PM EST documented as of this encounter Care Teams Distribution Driver Relationship Specialty Start Date End Date Yeison Kraus MD [address] [place] [address] PCP - General Family Medicine 04/05/17 Lupe Pillai, [place] [address] [place] [address] Pharmacist Internal Medicine 10/19/22 documented as of this encounter
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
--- OUTSIDE RECORDS SUMMARY | 2024-09-16 12:41 | XMS_ITS | Encounter Summary ---
Author Organization [employer] Address [address] [facility] [address]t [place] [address] Care Team Providers Care Plasterer Spot Name Role Phone Name, Yeison RUSSELL Primary Care Provider [phone] Lupe Pillai PharmD Unavailable Reason for Visit * Reason Comments Med Refill Encounter Details Date Type Department Care Team (Late Contact Info) Description 09/15/2022 Refill [facility] [address] [place] [phone] Yeison Kraus MD [address] [place] [phone] Social History Tobacco Use Types Packs/Day Years Used Date Smoking Tobacco: Never Assessed Comments Unknown Sex and Gender Information Value Date Recorded Sex Assigned at Female 06/19/2022 10:16 AM EDT Legal Sex Female 10:16 AM EDT Gender Identity Female 06/19/2022 10:16 AM EDT Sexual Orientation Straight 06/19/2022 10 :16 AM EDT documented as of this encounter Plan of Treatment Upcoming Encounters Date Type Department Care Team (Late Contact Info) Description 09/23/2024 3:30 PM EST Medication Management [facility] [address] [place] [phone] Lupe Pillai, PharmD [address] [place] [address] 11/10/2024 3:30 PM EDT Office Visit [facility] [address] [place] [address] Yeison Kraus MD [address] [place] [phone] documented as of this encounter Visit Diagnoses Not on filedocumented in this encounter Care Teams Plasterer Spot Relationship Specialty Start Date End Date Name, MD Yeison [address] [place] [address] PCP - General Family Medicine 04/05/17 Lupe Pillai PharmD [address] [place] [address] Pharmacist Internal Medicine 10/19/22 documented as of this encounter
--- OUTSIDE RECORDS SUMMARY | 2024-09-16 12:41 | XMS_ITS | Encounter Summary ---
Author Organization [employer] Address [address] [facility] [address] [place] [address] Care Team Providers Care Mds Nurse Name Role Phone Name, Yeison RUSSELL Primary Care Provider [phone] Lupe Pillai PharmD Unavailable [phone] Reason for Visit * Reason Onset Date Comments sep recalls 08/28/2024 Encounter Details Date Type Department Care Team (Late st Contact Info) Description 08/28/2024 Telephone [facility] [address] [place], [place] [phone] Rosalinda Cardona MA sep recalls Social History Tobacco Use Types Packs/Day Years [...] AM EDT documented as of this encounter Miscellaneous Notes * Telephone Encounter - Rosalinda Cardona MA - 08/28/2024 11:52 AM EST T/C placed to pt. Scheduled recall. Pt agrees with plan. Reminder letter sent . documented in this encounter Plan of Treatment Upcoming Encounters Date Type Department Care Team (Late st Contact Info) Description 09/23/2024 3:30 PM EST Medication Management [address] [address] Puia Lupe, PharmD [address] [place] [address] 11/10/2024 3:30 PM EDT Office Visit [facility] [address] [place] [phone] Name, MD Yeison [address] [place] [address] documented as of this encounter Goals Goal Patient Goal Type Associated Problems Recent Progress Patient-Stated? Author Record your blood pressure once per day Blood Pressure No Puia, Lupe, PharmD Blood Pressure < 140/90 Blood Pressure 154/81( 025 5:23 PM EST) No Puia, Lupe, PharmD documented as of this encounter Visit Diagnoses Not on filedocumented in this encounter Additional Health Concerns Assessment Noted Time PHQ-9 Depression Total Score: 0 07/28/20 24 4:24 PM EST documented as of this encounter Care Teams Mds Nurse Relationship Specialty Start Date End Date Name, MD Yeison [address] [place] [address] PCP - General Family Medicine 04/05/17 Lupe Pillai PharmD [address] [place] [address] Pharmacist Internal Medicine 10/19/22 documented as of this encounter
--- OUTSIDE RECORDS SUMMARY | 2024-09-16 12:41 | XMS_ITS | Encounter Summary ---
Author Organization [employer] Address [address] [place] [address] Care Team Providers Care Clinical Appeals Rn Name Role Phone Name, Yeison RUSSELL Primary Care Provider [phone] Lupe Pillai PharmD Unavailable [phone] Reason for Visit * Reason Comments Med Refill Encounter Details Date Type Department Care Team ([facility] st Contact Info) Description 03/14/2024 Refill [facility] [address] [place], [place] [phone] Name, MD Yeison [address] [place], [place] [phone] Depression, unspecified depression type Social History Tobacco Use Types Packs/Day Years Used Date Smoking Tobacco: Never Smokeless Tobacco: Never Alcohol Use Standard Drinks/Week Comments Never 0 (1 standard drink = 0.6 oz pur e alcohol) Housing Stability Answer Date Recorded What is your housing situation today? I have mah[place] 06/15/[address] you li ve. Do you have problems with any of the following? None of the above 06/15/2023 Food Insecurity Answer Date Recorded Within the past 12 months, y ou worried that your food would run out before you got money to buy more: Never True 06/15/2023 Within the past 12 months,th e food you bought just didn't last and you didn't have enough money to get more: Never True Transportation Answer Date Recorded In the past 12 months, has l ack of transportation kept you from medical appts, meetings, work or from getting things needed for daily living? No 06/15/2023 Utilities Answer Date Recorded In the past 12 months, has t he [employer], [employer], oil or water [employer] threatened to shut off services in your home? No 06/15/2023 Depression Answer Date Recorded Patient Health Questionnaire-2 Score 0 10/06/2022 Comments Unknown Sex and Gender Information Value [...] Description 09/23/2024 3:30 PM EST Medication Management [facility] [address] [place] [phone] Lupe Pillai PharmD [address] [place] [phone] 11/10/2024 3:30 PM EDT Office Visit [facility] [address] [place] [phone] NameYeison MD [address] [place] [phone] documented as of this encounter Goals Goal Patient Goal Type Associated Problems Recent Progress Patient-Stated? Author Record your blood pressure once per day Blood Pressure No Lupe Pillai PharmD Blood Pressure < 140/90 Blood Pressure 154/81( 025 5:23 PM EST) No Lupe Pillai PharmD documented as of this encounter Visit Diagnoses Diagnosis Depression, unspecified depression type documented in this encounter Care Teams Clinical Appeals Rn Relationship Specialty Start Date End Date Yeison Kraus MD [address] [place] [phone] PCP - General Family Medicine 04/05/17 Lupe Pillai, PharmD [address] [place] [phone] Pharmacist Internal Medicine 10/19/22 documented as of this encounter
--- OUTSIDE RECORDS SUMMARY | 2024-09-16 12:41 | XMS_ITS | Encounter Summary ---
Author Organization [employer] Address [address] [facility] 7t [place] [address] Care Team Providers Care Closing Supervisor Name Role Phone Name, Yeison RUSSELL Primary Care Provider [phone] Lupe Pillai PharmD Unavailable [phone] Encounter Details Date Type Department Care Team (Late st Contact Info) Description 09/26/2022 Orders Only [facility] [address] [place], [place] [phone] Chyna Whitley LPN Social History Tobacco Use Types Packs/Day Years [...] Description 09/23/2024 3:30 PM EST Medication Management [address] [address] Lupe Pillai, PharmD [address] [place] [address] 11/10/2024 3:30 PM EDT Office Visit [address] [phone] NameYeison MD [address] [place] [address] [phone] documented as of this encounter Procedures Procedure Name Priority Date/Time Associated Diagnosis Comments T4, FREE Routine 09/14/2023 1:46 PM EST documented in this encounter Results * T4, Free (09/14/2023 1:46 PM EST) Free T4 (Free Thyroxine) 0.83 0.71 - 1.85 ng/dL [facility] 09/14/2023 1:4 6 PM EST 09/14/2023 3:56 PM EST us Yeison Kraus MD LAB BLOOD ORDERABLES Final Resul t [facility] [address] [place] [phone] [phone] documented in this encounter Visit Diagnoses Not on filedocumented in this encounter Care Teams Closing Supervisor Relationship Specialty Start Date End Date Name, MD Yeison [address] [place] [address] PCP - General Family Medicine 04/05/17 Lupe Pillai PharmD [address] [place] [address] Pharmacist Internal Medicine 10/19/22 documented as of this encounter
--- OUTSIDE RECORDS SUMMARY | 2024-09-16 12:41 | XMS_ITS | Encounter Summary ---
Author Organization [employer] Address [address] 7[address] [place] [address] Care Team Providers Care Whipped Topping Mixer Name Role Phone Name, Yeison RUSSELL Primary Care Provider [phone] Lupe Pillai PharmD Unavailable [phone] Encounter Details Date Type Department Care Team (Latest Contact Info) Description 09/15/2024 Travel Social History Tobacco Use Types Packs/Day Years [...] Description 09/23/2024 3:30 PM EST Medication Management [facility] [address] [place] [address] Lupe Pillai, PharmD [address] [place] [phone] 11/10/2024 3:30 PM EDT Office Visit [facility] [address] [place] [address] NameYeison MD [address] [place] [phone] documented as of this encounter Goals Goal Patient Goal Type Associated Problems Recent Progress Patient-Stated? Author Record your blood pressure once per day Blood Pressure No Puia, Lupe, PharmD Blood Pressure < 140/90 Blood Pressure 154/81( 025 5:23 PM EST) No PuiaJacobLupe, PharmD documented as of this encounter Visit Diagnoses Not on filedocumented in this encounter Additional Health Concerns Assessment Noted Time PHQ-9 Depression Total Score: 0 07/28/20 24 4:24 PM EST documented as of this encounter Care Teams Whipped Topping Mixer Relationship Specialty Start Date End Date Yeison Kraus MD [address] [place] [address] [phone] PCP - General Family Medicine 04/05/17 Violette Pillaisa, PharmD [address] [place] [address] [phone] Pharmacist Internal Medicine 3/2/23 documented as of this encounter
--- OUTSIDE RECORDS SUMMARY | 2024-09-16 12:41 | XMS_ITS | Encounter Summary ---
Author Organization [employer] Address [address] 7[address] [place] [address] Care Team Providers Care Speech Language Pathology Assistant Name Role Phone Name, Yeison RUSSELL Primary Care Provider Lupe Pillai PharmD Unavailable [phone] Reason for Visit * Reason Comments UTI Encounter Details Date Type Department Care Team ([facility] st Contact Info) Description 09/15/2024 6:20 PM EST Office Visit [facility] [address] [place], [place] [phone] Edwin Lee MD [address] [place] [address] Acute cystitis with hematuria Social History Tobacco Use Types Packs/Day Years [...] AM EDT documented as of this encounter Last Filed Vital Signs Vital Sign Reading Time Taken Comments Blood Pressure 154/81 09/15/2024 5:23 PM EST Pulse 85 09/15/2024 5:23 PM EST Temperature 36.8 ??C (98.2 ??F) 09/15/2024 5:23 PM ES T Respiratory Rate 16 09/15/2024 5:23 PM EST Oxygen Saturation 98% 09/15/2024 5:23 PM EST Inhaled Oxygen Concentration - - Weight 76.2 kg (168 lb) 09/15/2024 5:23 PM EST Height - - Body Mass Index 35.11 09/10/2023 3:24 PM EST documented in this encounter Progress Notes * Edwin Lee MD - 09/15/2024 6:20 PM EST Subjective History was provided by the patient. Ju Peña is a 64 y.o. female who presents for evaluation of dysuria and urinary frequency for 2 days. Denies abdominal, pelvic, or back pain. Denies F/C/N/V/D. LMP at age 44. Denies vaginal discharge. Objective Vitals: 09/15/24 1723 BP: (!) 154/81 BP Location: Left arm Patient Position: Sitting BP Cuff Size: Large adult Pulse: 85 Resp: 16 Temp: 98.2 ??F (36.8 ??C) TempSrc: Temporal SpO2: 98% Weight: 168 lb (76.2 kg) Physical Exam Vitals reviewed. Constitutional: Appearance: Normal appearance. She is normal weight. HENT: Head: Normocephalic and atraumatic. Right Ear: External ear normal. Left Ear: External ear normal. Nose: Nose normal. Mouth/Throat: Mouth: Mucous membranes are moist. Pharynx: Oropharynx is clear. Eyes: Extraocular Movements: Extraocular movements intact. Conjunctiva/sclera: Conjunctivae normal. Pulmonary: Effort: Pulmonary effort is normal. Abdominal: General: Abdomen is flat. Bowel sounds are normal. There is no distension. Palpations: Abdomen is soft. Tenderness: There is no abdominal tenderness. There is no right CVA tenderness, left CVA tenderness, guarding or rebound. Musculoskeletal: General: Normal range of motion. Cervical back: Normal range of motion and neck supple. Skin: General: Skin is warm and dry. Neurological: General: No focal deficit present. Mental Status: She is alert and oriented to person, place, and time. Mental status is at baseline. Psychiatric: Mood and Affect: Mood normal. Behavior: Behavior normal. Thought Content: Thought content normal. Judgment: Judgment normal. Office Visit on 09/15/2024 Component Date Value Ref Range Status Color, UA 09/15/2024 Yellow Final Clarity, UA 09/15/2024 Cloudy Final Glucose, UA 09/15/2024 Negative Final Bilirubin, UA 09/15/2024 Few 15 Final Small Ketones, UA 09/15/2024 Negative Final Spec Grav, UA 09/15/2024 1.030 Final Blood, UA 09/15/2024 Positive (A) Negative, None Detected Final Moderate pH, UA 09/15/2024 5.5 Final Protein, UA 09/15/2024 3+ 500+++ Final 300mg Urobilinogen, UA 09/15/2024 0.2 Final Leukocytes, UA 09/15/2024 Moderate (A) Negative, Rare, Trace Final Nitrite, UA 09/15/2024 Positive (A) Negative, None Detected Final Appearance, UA 09/15/2024 OK Final Ju was seen today for uti. Diagnoses and all orders for this visit: Acute cystitis with hematuria - POCT urinalysis dipstick manually resulted - sulfamethoxazole-trimethoprim (Bactrim DS) 800-160 MG tablet; Take 1 tablet by mouth 2 times daily for 3 days. - Culture, Urine, Routine; Future Patient with a clinical presentation of acute UTI No clinical evidence of acute abdomen or pyelonephritis Patient was unable to produce adequate urine for UCx Will bring in additional urine sample for culture tomorrow AM Start Bactrim DS 1 tab PO BID for 3 days Potential adverse effects of the medication reviewed Probiotic use discussed Allergies reviewed Discussed strategies to prevent future infections Advised to contact the clinic if no improvement of symptoms Indications for UC/ER use reviewed documented in this encounter Plan of Treatment Upcoming Encounters Date Type Department Care Team (Late st Contact Info) Description 09/23/2024 3:30 PM EST Medication Management [address] [address] Lupe Pillai PharmD [address] [place] [phone] 11/10/2024 3:30 PM EDT Office Visit [facility] [address] [place] [address] Name, MD Yeison [address] [place] [phone] Scheduled Orders Name Type Priority Associated Diagnoses Orde r Schedule Culture, Urine, Routine Microbiology Routine Acute cystitis with hematuria Expected: 09/15/2024 (Approximate), Expires: 09/15/2025 documented as of this encounter Goals Goal Patient Goal Type Associated Problems Recent Progress Patient-Stated? Author Record your blood pressure once per day Blood Pressure No PuiaJacobLupe, PharmD Blood Pressure < 140/90 Blood Pressure 154/81( 025 5:23 PM EST) No PuiaJacobLupe PharmD documented as of this encounter Procedures Procedure Name Priority Date/Time Associated Diagnosis Comments POCT URINALYSIS DIPSTICK Routine 09/15/2024 5:29 PM EST Acute cystitis with hematuria documented in this encounter Results * (ABNORMAL) POCT urinalysis dipstick manually [...] CARE TEST ENTER/EDIT OR DERABLES Final Result documented in this encounter Visit Diagnoses Diagnosis Acute cystitis with hematuria documented in this encounter Additional Health Concerns Assessment Noted Time PHQ-9 Depression Total Score: 0 07/28/20 24 4:24 PM EST documented as of this encounter Care Teams Speech Language Pathology Assistant Relationship Specialty Start Date End Date Name, MD Yeison [address] [place] [address] PCP - General Family Medicine 04/05/17 Lupe Pillai PharmD [address] [place] [phone] Pharmacist Internal Medicine 10/19/22 documented as of this encounter
[2024-09-16 13:56] LABS: Anion Gap 10 (12-20); Blood Urea Nitrogen 13 mg/dL (9-16); Calcium 8.3 mg/dL (8.4-10.2); Carbon Dioxide 28 mmol/L (22-29); Chloride 106 mmol/L (96-108); Estimated Glomerular Filt Rate > 60; Glucose Random 101 mg/dL (60-115); Potassium 3.5 mmol/L (3.3-5.1); Sodium 140 mmol/L (135-145)
== END 2024-09-16 11:27 | disposition home or self-care (01) ==
LOC: HO.HHCL 11:26
PROVIDERS: Internal Medicine Geriatric Medicine; Visit Provider Family Medicine
DX: I10 Essential (primary) hypertension (principal); N30.01 Acute cystitis with hematuria
CPT/HCPCS: 36415; 80048; 87086; 87088; 87186

== ENCOUNTER 2025-03-09 13:24 | Outpatient (REF) | payer MEDICAID, SELFPAY ==
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
[2025-03-09 16:33] LABS: Alanine Aminotransferase 20 U/L (0-31); Albumin Level 3.9 g/dL (3.5-5.0); Alkaline Phosphatase 105 U/L (39-117); Anion Gap 12 (12-20); Aspartate Amino Transferase 33 U/L (5-31); Blood Urea Nitrogen 15 mg/dL (9-16); Calcium 8.7 mg/dL (8.4-10.2); Carbon Dioxide 27 mmol/L (22-29); Chloride 108 mmol/L (96-108); Cholesterol 237 mg/dL (<200); Estimated Glomerular Filt Rate > 60; HDL Cholesterol 31 mg/dL (>40); Potassium 3.6 mmol/L (3.3-5.1); Sodium 143 mmol/L (135-145); Total Protein 6.9 g/dL (6.5-8.0); Triglycerides 323 mg/dL (<150)
[2025-03-09 17:34] LABS: Reflex LDLD? No
== END 2025-03-09 13:25 | disposition home or self-care (01) ==
LOC: HO.HHCL 13:24
PROVIDERS: PCP Internal Medicine Geriatric Medicine; Visit Provider Internal Medicine Geriatric Medicine
DX: I10 Essential (primary) hypertension (principal); E78.00 Pure hypercholesterolemia, unspecified
CPT/HCPCS: 36415; 80048; 80061; 80076